=== PATIENT | female | born 1950 | race Hispanic/Latino ===

== ENCOUNTER → 2017-10-28 | Outpatient (CLI) | payer MEDICARE, OTHER ==
[~2017-10-28] MED LIST: GLIM4TAB3 PO; LISI-617 PO; OMEP20CA10 PO; SIMV5TAB6 PO
== END | disposition home or self-care (01) ==
LOC: RAH 07:53
PROVIDERS: ATTEND Surgery
DX: K80.10 Calculus of gallbladder with chronic cholecystitis without obstruction (principal)
CPT/HCPCS: 76705

== ENCOUNTER 2018-02-11 17:00 | Inpatient (IN) | payer OTHER ==
[~2018-02-11] VITALS: Ht 147.3 cm; Wt 67.1 kg
[~2018-02-11 17:00] MED LIST changes: -OMEP20CA10 PO
[2018-02-11] MEDS ORDERED: SODIUM CHLORIDE 0.9% 1000ML 1,000 ML IV ONE (17:19)
[2018-02-11 17:31] LABS: BASOPHILS % (AUTO) 0.3 % (0.0-5.0); EOSINOPHILS % (AUTO) 0.3 % (0.0-8.0); HEMATOCRIT 30.5 % (36-48); LYMPHOCYTES % (AUTO) 11.4 % (21.0-51.0); MEAN CORPUSCULAR HEMOGLOBIN 30.5 pg (27.0-33.0); MEAN CORPUSCULAR HGB CONC 35.2 g/dL (32.0-36.0); MEAN CORPUSCULAR VOLUME 86.6 fL (79-99); MONOCYTES % (AUTO) 3.3 % (3.0-13.0); NEUTROPHILS % (AUTO) 84.7 % (40.0-77.0); PLATELET COUNT (AUTO) 215 K/uL (130-400); RED BLOOD CELL COUNT(AUTO) 3.52 MIL/uL (4.00-5.50); RED CELL DISTRIBUTION WIDTH 14.8 % (11.0-15.5); WHITE BLOOD COUNT (AUTO) 14.2 K/uL (4.8-10.8)
[2018-02-11 17:32] LABS: APPEARANCE,URINE Turbid (CLEAR); BILIRUBIN,URINE Negative (NEGATIVE); COLOR,URINE Yellow (YELLOW); GLUCOSE, URINE (UA) 500 mg/dL (NEGATIVE); KETONES,URINE Negative (NEGATIVE); LEUKOCYTE ESTERASE ,URINE Large (NEGATIVE); NITRATE,URINE Positive (NEGATIVE); OCCULT BLOOD,URINE Small (NEGATIVE); PH,URINE 5.5 (5.0-8.0); PROTEIN,URINE POS 2+ (NEGATIVE); UROBILINOGEN,URINE 0.2 mg/dL (0.2-1.0)
[2018-02-11 17:39] LABS: BACTERIA,URINE Moderate /HPF (None Seen); WBC,URINE >100 /HPF (0-1)
[2018-02-11 17:40] LABS: RENAL EPITHELIAL CELLS,URINE Few /HPF (None Seen); TRANSITIONAL EPI CELLS,URINE Few /HPF (None Seen)
[2018-02-11 17:43] LABS: INR 1.01 (0.85-1.15); PARTIAL THROMBOPLASTIN TIME 27.8 SEC (26.3-35.5); PROTHROMBIN TIME 10.6 SEC (9.6-11.6)
[2018-02-11] MEDS ORDERED: ACETAMINOPHEN 325 MG TAB ONE (17:49)
[2018-02-11 17:51] LABS: CREATININE 1.5 mg/dL (0.5-1.5); POTASSIUM 3.5 mmol/L (3.5-5.1)
[2018-02-11] MEDS ORDERED: CEFTRIAXONE SODIUM 2 GM VIAL ONE (17:59)
[2018-02-11 18:05] LABS: ALBUMIN 3.6 g/dL (3.5-5.0); BILIRUBIN,TOTAL 0.6 mg/dL (0.2-1.0); CREATINE KINASE MB 1.1 ng/mL (0.5-3.6); TOTAL PROTEIN, SERUM 7.3 g/dL (6.0-8.3); TROPONIN I 0.22 ng/mL (0.00-0.06)
[2018-02-11 21:13] VITALS: BP 94/52
[2018-02-11] MEDS ORDERED: ONDANSETRON HCL MDV 20ML 2 MG/ML VIAL IVP PRN (23:30)
[2018-02-11] MEDS ORDERED: SODIUM CHLORIDE 0.9% 1000ML 1,000 ML IV SCH (23:30)
[2018-02-11 23:40] VITALS: BP 94/54
[2018-02-12] MEDS: ACETAMINOPHEN 325 MG TAB PO PRN ×4 (01:42→23:48)
[2018-02-12 03:00] VITALS: BP 100/46
[2018-02-12 07:54] VITALS: BP 98/46
[2018-02-12] MEDS: PANTOPRAZOLE SODIUM 40 MG TABLET.DR PO SCH (09:36)
[2018-02-12] MEDS: ENOXAPARIN SODIUM 30 MG/0.3 ML SQ SCH (09:39)
[2018-02-12] MEDS ORDERED: OMEP20CA10 PO (10:58)
[2018-02-12 11:50] VITALS: BP 122/63
[2018-02-12] MEDS ORDERED: COMPOUND PO MISCELLANEOUS 1 EACH MISC MISC PRN (14:15)
[2018-02-12] MEDS: ZOSYN 3.375GM+NS 50ML 50 ML IV SCH ×2 (14:27→21:05)
[2018-02-12 15:36] VITALS: BP 120/59
[2018-02-12] MEDS: OSELTAMIVIR SUSP 15 MG/ML (6 CAPS/29ML) PO SCH ×2 (15:47)
[2018-02-12] MEDS: SODIUM CHLORIDE 0.9% 1000ML 1,000 ML IV SCH (15:48)
[2018-02-12] MEDS ORDERED: CEFTRIAXONE SODIUM 1 GM IVP SCH ×2 (17:00)
[2018-02-12] MEDS ORDERED: GLUCAGON 1MG KIT 1 MG ML IM PRN (18:45)
[2018-02-12] MEDS ORDERED: DEXTROSE 50%-WATER 50 ML DISP.SYRIN IV PRN (18:45)
[2018-02-12 19:25] VITALS: BP 138/66
[2018-02-12] MEDS: INSULIN HUMULIN R 100 UNIT/ML 3ML SQ SCH (21:00)
[2018-02-12] MEDS ORDERED: OSELTAMIVIR PHOSPHATE 75 MG CAP PO SCH (21:00)
[2018-02-13] VITALS (7 sets, daily range): BP systolic 115–186; BP diastolic 57–97
[2018-02-13] MEDS: SODIUM CHLORIDE 0.9% 1000ML 1,000 ML IV SCH ×2 (03:54→15:33)
[2018-02-13] MEDS: ZOSYN 3.375GM+NS 50ML 50 ML IV SCH ×3 (04:37→23:41)
[2018-02-13] MEDS: INSULIN HUMULIN R 100 UNIT/ML 3ML SQ SCH ×4 (06:43→21:00)
[2018-02-13 06:51] LABS: BASOPHILS % (AUTO) 0.3 % (0.0-5.0); EOSINOPHILS % (AUTO) 0.2 % (0.0-8.0); HEMATOCRIT 28.8 % (36-48); LYMPHOCYTES % (AUTO) 9.3 % (21.0-51.0); MEAN CORPUSCULAR HEMOGLOBIN 31.1 pg (27.0-33.0); MEAN CORPUSCULAR HGB CONC 36.1 g/dL (32.0-36.0); MEAN CORPUSCULAR VOLUME 86.2 fL (79-99); MONOCYTES % (AUTO) 3.8 % (3.0-13.0); NEUTROPHILS % (AUTO) 86.4 % (40.0-77.0); PLATELET COUNT (AUTO) 168 K/uL (130-400); RED BLOOD CELL COUNT(AUTO) 3.34 MIL/uL (4.00-5.50); RED CELL DISTRIBUTION WIDTH 14.7 % (11.0-15.5); WHITE BLOOD COUNT (AUTO) 6.5 K/uL (4.8-10.8)
[2018-02-13 07:07] LABS: ALBUMIN 2.2 g/dL (3.5-5.0); BILIRUBIN,TOTAL 0.6 mg/dL (0.2-1.0); TOTAL PROTEIN, SERUM 5.7 g/dL (6.0-8.3)
[2018-02-13 07:21] LABS: POTASSIUM 2.7 mmol/L (3.5-5.1)
[2018-02-13] MEDS: OSELTAMIVIR SUSP 15 MG/ML (6 CAPS/29ML) PO SCH ×2 (09:00)
[2018-02-13] MEDS ORDERED: OSELTAMIVIR PHOSPHATE 75 MG CAP ONE (09:19)
[2018-02-13] MEDS: PANTOPRAZOLE SODIUM 40 MG TABLET.DR PO SCH (09:51)
[2018-02-13] MEDS: ENOXAPARIN SODIUM 30 MG/0.3 ML SQ SCH (09:53)
[2018-02-13] MEDS ORDERED: POTASSIUM CHLORIDE 20MEQ/100ML 100 ML IV PRN (12:30)
[2018-02-13] MEDS ORDERED: LIDOCAINE HCL-MPF 1% 2ML VIAL IVP PRN (12:30)
[2018-02-13] MEDS ORDERED: POTASSIUM CHLORIDE 10% ELIXIR 20 MEQ/15 ML UDCUP PO PRN (12:30)
[2018-02-13] MEDS: ACETAMINOPHEN 325 MG TAB PO PRN (17:02)
[2018-02-13] MEDS: POTASSIUM CHLORIDE 20 MEQ ERTAB PO PRN ×3 (17:11→23:48)
[2018-02-13] MEDS ORDERED: MAGNESIUM 2GM PREMIX 50ML 50 ML IV ONE (21:09)
[2018-02-13] MEDS ORDERED: MAGNESIUM 2GM PREMIX 50ML 50 ML IV SCH (21:15)
[2018-02-13] MEDS ORDERED: MAGNESIUM 2GM PREMIX 50ML 50 ML IV PRN (21:15)
[2018-02-14] VITALS: BP 118/60
[2018-02-14 04:00] VITALS: BP 142/72
[2018-02-14] MEDS: ACETAMINOPHEN 325 MG TAB PO PRN ×2 (04:05→18:33)
[2018-02-14 04:43] LABS: MAGNESIUM 2.3 mg/dL (1.80-2.40); POTASSIUM 3.4 mmol/L (3.5-5.1)
[2018-02-14] MEDS: ZOSYN 3.375GM+NS 50ML 50 ML IV SCH (06:00)
[2018-02-14] MEDS: INSULIN HUMULIN R 100 UNIT/ML 3ML SQ SCH ×4 (07:30→21:35)
[2018-02-14 08:44] VITALS: BP 128/66
[2018-02-14] MEDS ORDERED: MEROPENEM 1GM IVPB PREMIXED 1 GM IV SCH (10:00)
[2018-02-14] MEDS: DOXYCYCLINE HYCLATE 100 MG TABLET PO SCH ×2 (11:36→21:38)
[2018-02-14] MEDS: ENOXAPARIN SODIUM 30 MG/0.3 ML SQ SCH (11:36)
[2018-02-14] MEDS: MEROPENEM 1 GM VIAL IVP SCH ×2 (11:36→18:33)
[2018-02-14 12:38] VITALS: BP 132/61
[2018-02-14] MEDS: PANTOPRAZOLE SODIUM 40 MG TABLET.DR PO SCH (14:37)
[2018-02-14] MEDS: SODIUM CHLORIDE 0.9% 1000ML 1,000 ML IV SCH ×2 (14:37→21:46)
[2018-02-14 16:16] VITALS: BP 154/74
[2018-02-14] MEDS: POTASSIUM CHLORIDE 20 MEQ ERTAB PO PRN (18:46)
[2018-02-14 19:00] VITALS: BP 135/61
[2018-02-14] MEDS: SIMVASTATIN 5 MG PO SCH (21:00)
[2018-02-15] VITALS (7 sets, daily range): BP systolic 113–144; BP diastolic 59–72
[2018-02-15] MEDS: MEROPENEM 1 GM VIAL IVP SCH ×3 (02:29→18:23)
[2018-02-15] MEDS: INSULIN HUMULIN R 100 UNIT/ML 3ML SQ SCH ×4 (05:55→21:52)
[2018-02-15 06:20] LABS: HEMATOCRIT 30.2 % (36-48); MEAN CORPUSCULAR HEMOGLOBIN 29.1 pg (27.0-33.0); MEAN CORPUSCULAR HGB CONC 34.3 g/dL (32.0-36.0); MEAN CORPUSCULAR VOLUME 84.8 fL (79-99); PLATELET COUNT (AUTO) 177 K/uL (130-400); RED BLOOD CELL COUNT(AUTO) 3.56 MIL/uL (4.00-5.50); RED CELL DISTRIBUTION WIDTH 15.3 % (11.0-15.5); WHITE BLOOD COUNT (AUTO) 7.1 K/uL (4.8-10.8)
[2018-02-15 06:35] LABS: ALBUMIN 2.5 g/dL (3.5-5.0); BILIRUBIN,TOTAL 0.4 mg/dL (0.2-1.0); POTASSIUM 3.7 mmol/L (3.5-5.1); TOTAL PROTEIN, SERUM 6.5 g/dL (6.0-8.3)
[2018-02-15] MEDS: GLIMEPIRIDE 2 MG TABLET PO SCH (10:38)
[2018-02-15] MEDS: DOXYCYCLINE HYCLATE 100 MG TABLET PO SCH ×2 (10:38→22:00)
[2018-02-15] MEDS: PANTOPRAZOLE SODIUM 40 MG TABLET.DR PO SCH (10:38)
[2018-02-15] MEDS: ENOXAPARIN SODIUM 30 MG/0.3 ML SQ SCH (10:39)
[2018-02-15] MEDS: LISINOPRIL 5 MG TABLET PO SCH (10:39)
[2018-02-15] MEDS: SIMVASTATIN 5 MG PO SCH (21:00)
[2018-02-15] MEDS: SODIUM CHLORIDE 0.9% 1000ML 1,000 ML IV SCH ×2 (22:00→22:15)
[2018-02-16] MEDS: MEROPENEM 1 GM VIAL IVP SCH ×3 (03:52→17:46)
[2018-02-16 04:00] VITALS: BP 124/55
[2018-02-16 05:09] LABS: MEAN CORPUSCULAR HEMOGLOBIN 29.5 pg (27.0-33.0); MEAN CORPUSCULAR HGB CONC 34.6 g/dL (32.0-36.0); MEAN CORPUSCULAR VOLUME 85.3 fL (79-99); PLATELET COUNT (AUTO) 222 K/uL (130-400); RED BLOOD CELL COUNT(AUTO) 3.52 MIL/uL (4.00-5.50); WHITE BLOOD COUNT (AUTO) 6.2 K/uL (4.8-10.8)
[2018-02-16 05:25] LABS: CREATININE 1.1 mg/dL (0.5-1.5); POTASSIUM 3.9 mmol/L (3.5-5.1)
[2018-02-16] MEDS: INSULIN HUMULIN R 100 UNIT/ML 3ML SQ SCH ×4 (06:40→20:51)
[2018-02-16 07:40] VITALS: BP 124/61
[2018-02-16] MEDS: GLIMEPIRIDE 2 MG TABLET PO SCH (08:13)
[2018-02-16] MEDS: DOXYCYCLINE HYCLATE 100 MG TABLET PO SCH ×2 (08:13→20:51)
[2018-02-16] MEDS: LISINOPRIL 5 MG TABLET PO SCH (08:13)
[2018-02-16] MEDS: PANTOPRAZOLE SODIUM 40 MG TABLET.DR PO SCH (08:13)
[2018-02-16] MEDS: ENOXAPARIN SODIUM 30 MG/0.3 ML SQ SCH (08:14)
[2018-02-16 10:56] VITALS: BP 125/59
[2018-02-16] MEDS: SODIUM CHLORIDE 0.9% 1000ML 1,000 ML IV SCH ×2 (14:55→21:05)
[2018-02-16 16:29] VITALS: BP 123/67
[2018-02-16 19:38] VITALS: BP 137/66
[2018-02-16] MEDS: SIMVASTATIN 5 MG PO SCH (20:51)
[2018-02-16 23:52] VITALS: BP 121/56
[2018-02-17] MEDS: MEROPENEM 1 GM VIAL IVP SCH ×3 (03:02→18:20)
[2018-02-17 04:00] VITALS: BP 119/66
[2018-02-17 04:45] LABS: INR 0.92 (0.85-1.15); PARTIAL THROMBOPLASTIN TIME 25.6 SEC (26.3-35.5); PROTHROMBIN TIME 9.7 SEC (9.6-11.6)
[2018-02-17] MEDS: INSULIN HUMULIN R 100 UNIT/ML 3ML SQ SCH ×3 (06:31→16:22)
[2018-02-17 08:23] VITALS: BP 131/63
[2018-02-17] MEDS: ENOXAPARIN SODIUM 30 MG/0.3 ML SQ SCH (10:01)
[2018-02-17] MEDS: DOXYCYCLINE HYCLATE 100 MG TABLET PO SCH (10:01)
[2018-02-17] MEDS: GLIMEPIRIDE 2 MG TABLET PO SCH (10:02)
[2018-02-17] MEDS: LISINOPRIL 5 MG TABLET PO SCH (10:02)
[2018-02-17] MEDS: PANTOPRAZOLE SODIUM 40 MG TABLET.DR PO SCH (10:02)
[2018-02-17 12:21] VITALS: BP 130/66
[2018-02-17 16:25] VITALS: BP 120/56
== END 2018-02-17 19:00 | disposition home or self-care (01) | DRG 872 ==
LOC: EDH 17:00 → OBSVTOIN 18:37 → EDHIP 18:37 → 3CH 20:56
PROVIDERS: ADMIT Internal Medicine; ATTEND Internal Medicine
DX: A41.50 Gram-negative sepsis, unspecified (principal); N13.30 Unspecified hydronephrosis; E78.5 Hyperlipidemia, unspecified; D64.9 Anemia, unspecified; E11.9 Type 2 diabetes mellitus without complications; E87.6 Hypokalemia; N39.0 Urinary tract infection, site not specified; B96.89 Other specified bacterial agents as the cause of diseases classified elsewhere; Z16.24 Resistance to multiple antibiotics; Z60.2 Problems related to living alone; Z90.710 Acquired absence of both cervix and uterus; Z79.4 Long term (current) use of insulin; Z83.3 Family history of diabetes mellitus; I10 Essential (primary) hypertension
CPT/HCPCS: 36415; 71045; 74176; 80048; 80053; 81001; 82550; 82553; 82948; 83605; 83735; 83874; 84132; 84484; 85025; 85027; 85610; 85730; 86757; 87040; 87088; 87186; 93005; 99291; A4218; C1894; J0696; J1650; J1815; J2185; J2543; J3475; J3480; J3490; J7030

== ENCOUNTER → 2018-09-29 | Outpatient (CLI) | payer OTHER, MEDICARE ==
[~2018-09-29] MED LIST changes: +OMEP20CA10 PO
== END | disposition home or self-care (01) ==
LOC: RAH 09:16
PROVIDERS: ATTEND Family Medicine
DX: N13.30 Unspecified hydronephrosis (principal)
CPT/HCPCS: 74178

== ENCOUNTER 2019-04-23 19:33 | Observation (INO) | payer OTHER, MEDICARE ==
[~2019-04-23] VITALS: Ht 137.2 cm; Wt 74.4 kg
[~2019-04-23 19:33] MED LIST changes: +OMEP-50 PO; -OMEP20CA10 PO; +SIMV5TAB58 PO; -SIMV5TAB6 PO
[2019-04-23 21:07] LABS: BASOPHILS % (AUTO) 0.5 % (0.0-5.0); EOSINOPHILS % (AUTO) 2.1 % (0.0-8.0); HEMATOCRIT 32.3 % (36-48); MEAN CORPUSCULAR HGB CONC 32.3 g/dL (32.0-36.0); MEAN CORPUSCULAR VOLUME 86.4 fL (79-99); MONOCYTES % (AUTO) 5.8 % (3.0-13.0); NEUTROPHILS % (AUTO) 66.6 % (40.0-77.0); PLATELET COUNT (AUTO) 263 K/uL (130-400); RED BLOOD CELL COUNT(AUTO) 3.74 MIL/uL (4.00-5.50)
[2019-04-23 21:16] LABS: CREATININE 1.6 mg/dL (0.5-1.5)
[2019-04-23 21:19] LABS: INR 0.95 (0.85-1.15); PARTIAL THROMBOPLASTIN TIME 26.6 SEC (26.3-35.5)
[2019-04-23 21:27] LABS: ALBUMIN 3.6 g/dL (3.5-5.0); BILIRUBIN,TOTAL 0.2 mg/dL (0.2-1.0); TOTAL PROTEIN, SERUM 6.7 g/dL (6.0-8.3)
[2019-04-23] MEDS ORDERED: ASPIRIN 325 MG TABLET ONE (21:34)
[2019-04-23 22:35] LABS: APPEARANCE,URINE Clear (CLEAR); BILIRUBIN,URINE Negative (NEGATIVE); COLOR,URINE Yellow (YELLOW); GLUCOSE, URINE (UA) >=1000 mg/dL (NEGATIVE); KETONES,URINE Negative (NEGATIVE); LEUKOCYTE ESTERASE ,URINE Negative (NEGATIVE); NITRATE,URINE Positive (NEGATIVE); OCCULT BLOOD,URINE Negative (NEGATIVE); PROTEIN,URINE Negative (NEGATIVE); UROBILINOGEN,URINE 0.2 mg/dL (0.2-1.0)
[2019-04-23 22:46] LABS: AMPHET/METH SCREEN,URINE NEGATIVE (NEGATIVE); BARBITURATE SCREEN, URINE NEGATIVE (NEGATIVE); BENZODIAZEPINES SCREEN,URINE NEGATIVE (NEGATIVE); CANNABINOID SCREEN,URINE NEGATIVE (NEGATIVE); COCAINE SCREEN,URINE NEGATIVE (NEGATIVE); OPIATE SCREEN,URINE NEGATIVE (NEGATIVE); PHENCYCLIDINE SCREEN,URINE NEGATIVE (NEGATIVE)
[2019-04-23 23:02] LABS: BACTERIA,URINE Many /HPF (None Seen); RBC,URINE 0-1 /HPF (0-1); WBC,URINE 0-1 /HPF (0-1)
[2019-04-23 23:04] LABS: SQUAMOUS EPITHELIAL CELL,UR 0-2 /HPF (0-2)
[2019-04-24 01:50] VITALS: BP 142/74
[2019-04-24 03:20] VITALS: BP 121/56
[2019-04-24 07:58] VITALS: BP 102/65
[2019-04-24] MEDS ORDERED: ALEN70TA10 PO (10:33)
[2019-04-24] MEDS ORDERED: SIMV5TAB58 PO (10:35)
[2019-04-24] MEDS ORDERED: BACL10TA PO (10:35)
[2019-04-24] MEDS ORDERED: LOSA1TAB42 PO (10:35)
[2019-04-24] MEDS ORDERED: RANI150C4 PO (10:35)
[2019-04-24 10:45] LABS: POTASSIUM 4.6 mmol/L (3.5-5.1)
[2019-04-24] MEDS ORDERED: HUMALOG KWIK SQ SCH (10:45)
[2019-04-24 11:00] VITALS: BP 114/59
[2019-04-24] MEDS ORDERED: IOHEXOL-350 75 ML VIAL IV ONE (11:48)
[2019-04-24] MEDS ORDERED: CLOPIDOGREL BISULFATE 75 MG TAB PO SCH (15:15)
[2019-04-24 16:00] VITALS: BP 105/54
--- NOTE | 2019-04-24 16:18 | NUR ---
DARRYL AWARE OF CT'S ANGIO HEAD CT ORDERED US CAROTID AND KEEP SP <140 CHARGE NURSE AWARE
[2019-04-24] MEDS ORDERED: INSU200I SQ ×2 (16:31)
[2019-04-24] MEDS ORDERED: INSU3INS10 SQ (16:31)
--- NOTE | 2019-04-24 16:41 | NUR ---
FAMILY OF PATIENT ASKING IF PT CAN TAKE HOME INSULIN DEMOND FREIRE AWARE SINCE NO SLIDING SCALE ORDERED SHE STATED WILL PLACE PATIENT ON REGULAR SS#1 AC/HS NOT HER HOME INSULIN
[2019-04-24] MEDS ORDERED: HYDRALAZINE HCL 20 MG/ML VIAL IV PRN (16:45)
[2019-04-24] MEDS ORDERED: GLUCAGON 1MG KIT 1 MG ML IM PRN (16:45)
[2019-04-24] MEDS ORDERED: DEXTROSE 50%-WATER 50 ML DISP.SYRIN IV PRN (16:45)
[2019-04-24] MEDS: INSULIN HUMULIN R 100 UNIT/ML 3ML SQ SCH ×2 (17:11→22:57)
--- NOTE | 2019-04-24 17:18 | NUR ---
DCP CM met with pt discussed dc plans. Pt is independent prior to admission, lives at home alone, daughter and son lives close by. Denies any equipments/services. Pt feels safe to go back home, still drives, daughter and son able to assist with transportation and needs as necessary. DC plan to home once stable. CM to cont to follow up. Addendum: 04/24/19 at 1719 by JOHN MARKHAM LVN CM Amended: Links added.
[2019-04-24 20:00] VITALS: BP 110/54
[2019-04-24] MEDS: SIMVASTATIN 10 MG TABLET PO SCH (22:40)
[2019-04-24] MEDS: RANITIDINE HCL 15 MG/1 ML PO SCH (22:41)
[2019-04-25] VITALS: BP 118/56
[2019-04-25 04:00] VITALS: BP 109/61
[2019-04-25 06:03] LABS: HEMATOCRIT 34.1 % (36-48); MEAN CORPUSCULAR HEMOGLOBIN 28.5 pg (27.0-33.0); MEAN CORPUSCULAR HGB CONC 33.1 g/dL (32.0-36.0); MEAN CORPUSCULAR VOLUME 86.1 fL (79-99); PLATELET COUNT (AUTO) 270 K/uL (130-400); RED BLOOD CELL COUNT(AUTO) 3.97 MIL/uL (4.00-5.50); RED CELL DISTRIBUTION WIDTH 15.3 % (11.0-15.5); WHITE BLOOD COUNT (AUTO) 9.4 K/uL (4.8-10.8)
[2019-04-25 06:13] LABS: HEMOGLOBIN A1C 8.6 % (4.0-6.0)
[2019-04-25] MEDS: INSULIN HUMULIN R 100 UNIT/ML 3ML SQ SCH ×4 (07:04→21:24)
[2019-04-25 08:10] VITALS: BP 106/57
[2019-04-25] MEDS ORDERED: GADODIAMIDE 10 MMOL/20 ML VIAL IV ONE (10:33)
[2019-04-25] MEDS: LOSARTAN 100 MG TABLET PO SCH (10:46)
[2019-04-25] MEDS: CLOPIDOGREL BISULFATE 75 MG TAB PO SCH (10:46)
[2019-04-25] MEDS: LISINOPRIL 5 MG TABLET PO SCH (10:46)
[2019-04-25] MEDS: PANTOPRAZOLE SODIUM 40 MG TABLET.DR PO SCH (10:46)
[2019-04-25] MEDS: HYDROCHLOROTHIAZIDE 25 MG TABLET PO SCH (10:47)
[2019-04-25] MEDS: ASPIRIN 81MG TAB.CHEW PO SCH (10:47)
[2019-04-25 12:01] VITALS: BP 117/62
--- NOTE | 2019-04-25 12:30 | NUR ---
ROUNDS HERE TO SEE PT, SPOKE ABOUT RESULTS AND OPTIONS PRESENTED TO PT.
--- NOTE | 2019-04-25 16:30 | NUR ---
BLOOD SUGAR AT 244/ MISSED DOSAGE OF REGULAR SLIDING SCALE. DR. SIDHU NOTIFIED. NO FURTHER ORDERS. CONTINUE TO MONITOR BLOOD SUGAR.
[2019-04-25 16:45] VITALS: BP 109/62
[2019-04-25 20:00] VITALS: BP 106/58
[2019-04-25] MEDS: SIMVASTATIN 10 MG TABLET PO SCH (21:25)
[2019-04-25] MEDS: RANITIDINE HCL 15 MG/1 ML PO SCH (21:25)
[2019-04-26] VITALS: BP 95/50
[2019-04-26 04:00] VITALS: BP 97/50
[2019-04-26] MEDS: INSULIN HUMULIN R 100 UNIT/ML 3ML SQ SCH ×2 (06:20→11:12)
[2019-04-26 08:00] VITALS: BP 100/53
[2019-04-26] MEDS: CLOPIDOGREL BISULFATE 75 MG TAB PO SCH (09:06)
[2019-04-26] MEDS: ASPIRIN 81MG TAB.CHEW PO SCH (09:06)
[2019-04-26] MEDS: PANTOPRAZOLE SODIUM 40 MG TABLET.DR PO SCH (09:06)
[2019-04-26 11:47] VITALS: BP 144/65
[2019-04-26] MEDS: LOSARTAN 100 MG TABLET PO SCH (12:05)
[2019-04-26] MEDS: HYDROCHLOROTHIAZIDE 25 MG TABLET PO SCH (12:05)
[2019-04-26] MEDS: LISINOPRIL 5 MG TABLET PO SCH (12:05)
--- NOTE | 2019-04-26 16:53 | NUR ---
DISCHARGE INSTRUCTIONS GIVEN. INFORMED DAUGHTER "JEANNINE STEPHENS" TO MAKE SURE AND MAKE FOLLOW UP APPOINTMENTS WITH EVERY DOCTOR LISTED ON DISCHARGE INSTRUCTIONS TO BE MADE TOMORROW SINCE TODAY OFFICES ARE CLOSED FOR 04/26 . DAUGHTER TO MAKE APPOINTMENT DR. ELDRIDGE, DR. JOHNSON, DR FER LOUIS, DR. FER MCCAULEY . INSTRUCTED DAUGHTER AND PATIENT TO START ON ASPIRIN ORDERED. 325 MG DAILY FOR 30 DAYS. ALL QUESTIONS ANSWERED FOR JEANNINE DAUGHTER AND PATIENT. IV DISCONTINUED WITH INNER CANNULA INTACT.
== END 2019-04-26 16:50 | disposition home or self-care (01) ==
LOC: EDH 19:33 → INTOOBSV 04-24 00:25 → EDHIP 04-24 00:25 → OBSVTOIN 04-24 00:25 → 4CH 04-24 01:08
PROVIDERS: ADMIT Internal Medicine; ATTEND Internal Medicine
DX: I65.22 Occlusion and stenosis of left carotid artery (principal); E11.9 Type 2 diabetes mellitus without complications; I63.9 Cerebral infarction, unspecified; E78.5 Hyperlipidemia, unspecified; I10 Essential (primary) hypertension; K21.9 Gastro-esophageal reflux disease without esophagitis; M81.0 Age-related osteoporosis without current pathological fracture; Z79.899 Other long term (current) drug therapy
CPT/HCPCS: 36415 ×3; 70450; 70496; 70498; 70551; 71045; 80048 ×2; 80053; 80061; 80305; 81001; 82550; 82948 ×11; 83036; 83874; 84484; 85025; 85027; 85610; 85730; 93005; 93880; 96372 ×3; 99284; A9579; G0378 ×63; J1815 ×3; Q9967

== ENCOUNTER → 2019-05-21 | Outpatient (CLI) | payer OTHER, MEDICARE ==
[~2019-05-21] MED LIST changes: +ALEN70TA10 PO; +BACL10TA PO; +INSU200I SQ; +INSU3INS10 SQ; +LOSA1TAB42 PO; +RANI150C4 PO
== END | disposition home or self-care (01) ==
LOC: SHCH 08:57
PROVIDERS: ATTEND Internal Medicine Cardiovascular Disease
DX: I35.8 Other nonrheumatic aortic valve disorders (principal); I10 Essential (primary) hypertension
CPT/HCPCS: 93306

== ENCOUNTER 2019-06-07 06:00 | Day surgery (SDC) | payer OTHER, MEDICARE ==
[2019-06-04 13:45] LABS: BASOPHILS % (AUTO) 0.5 % (0.0-5.0); HEMATOCRIT 33.3 % (36-48); LYMPHOCYTES % (AUTO) 32.5 % (21.0-51.0); MEAN CORPUSCULAR HEMOGLOBIN 28.8 pg (27.0-33.0); MEAN CORPUSCULAR HGB CONC 33.3 g/dL (32.0-36.0); MEAN CORPUSCULAR VOLUME 86.5 fL (79-99); PLATELET COUNT (AUTO) 307 K/uL (130-400); RED BLOOD CELL COUNT(AUTO) 3.85 MIL/uL (4.00-5.50); RED CELL DISTRIBUTION WIDTH 14.8 % (11.0-15.5); WHITE BLOOD COUNT (AUTO) 9.8 K/uL (4.8-10.8)
[2019-06-04 13:48] LABS: APPEARANCE,URINE Clear (CLEAR); BILIRUBIN,URINE Negative (NEGATIVE); COLOR,URINE Yellow (YELLOW); GLUCOSE, URINE (UA) Negative (NEGATIVE); KETONES,URINE Negative (NEGATIVE); LEUKOCYTE ESTERASE ,URINE Negative (NEGATIVE); NITRATE,URINE Positive (NEGATIVE); OCCULT BLOOD,URINE Negative (NEGATIVE); PROTEIN,URINE Negative (NEGATIVE); UROBILINOGEN,URINE 0.2 mg/dL (0.2-1.0)
[2019-06-04 13:53] LABS: POTASSIUM 3.6 mmol/L (3.5-5.1)
[2019-06-04 13:56] LABS: INR 0.95 (0.85-1.15); PARTIAL THROMBOPLASTIN TIME 28.1 SEC (26.3-35.5)
[2019-06-04 14:00] LABS: BACTERIA,URINE Many /HPF (None Seen); RBC,URINE 0-1 /HPF (0-1); WBC,URINE 0-1 /HPF (0-1)
[2019-06-04 14:20] VITALS: BP 144/68
--- NOTE | 2019-06-06 16:25 | NUR ---
REPORTED ABNORMAL URINE LABS TO [place] RICKS FOR DR. LOUIS. ORDERS TO GIVE PT 1 GRAM ROCEPHIN IN AM PRIOR TO PROCEDURE.
[~2019-06-07] VITALS: Ht 149.9 cm; Wt 71.8 kg
[2019-06-07] VITALS (19 sets, daily range): BP systolic 108–130; BP diastolic 47–74
[~2019-06-07 06:00] MED LIST changes: +ASPI-1026 PO; +ATOR10 PO; -BACL10TA PO; +CHOL100040 PO; -GLIM4TAB3 PO; -LISI-617 PO; +MAGN250T10 PO; +METO-408 PO; -RANI150C4 PO; -SIMV5TAB58 PO; +SODIUM CHLORIDE 0.9% 500ML 500 ML IV SCH; +SUPPLEMENT PO
[2019-06-07] MEDS ORDERED: SODIUM CHLORIDE 0.9% 1000ML 1,000 ML IV ONE (06:40)
[2019-06-07] MEDS ORDERED: CEFTRIAXONE SODIUM 1 GM ONE (06:41)
[2019-06-07] MEDS ORDERED: LIDOCAINE HCL 2% 20ML ONE (07:11)
[2019-06-07] MEDS ORDERED: IODIXANOL 320 MG/ML 100 ML VIAL ONE (07:11)
[2019-06-07] MEDS ORDERED: NITROGLYCERIN 5 MG/ML 10 ML VIAL IV ONE (07:11)
[2019-06-07] MEDS ORDERED: HEPARIN SODIUM 1000UNIT/ML 10ML VIAL ONE (07:50)
[2019-06-07] MEDS ORDERED: CEFTRIAXONE SODIUM 1 GM IVP ONE (08:00)
[2019-06-07] MEDS ORDERED: SODIUM CHLORIDE 0.9% 1000ML 1,000 ML IV SCH (08:14)
[2019-06-07] MEDS ORDERED: DEXTROSE 50%-WATER 50 ML DISP.SYRIN IV PRN (08:15)
[2019-06-07] MEDS ORDERED: GLUCAGON 1MG KIT 1 MG ML IM PRN (08:15)
[2019-06-07] MEDS ORDERED: ATROPINE SULFATE 0.1 MG/ML 10 ML SYG IVP ONE (08:39)
[2019-06-07] MEDS ORDERED: INSULIN HUMULIN R 100 UNIT/ML 3ML SQ SCH (11:30)
== END 2019-06-07 13:41 | disposition home or self-care (01) ==
LOC: DAH 06:00
PROVIDERS: ATTEND Internal Medicine Cardiovascular Disease
DX: I65.22 Occlusion and stenosis of left carotid artery (principal); I10 Essential (primary) hypertension; K21.9 Gastro-esophageal reflux disease without esophagitis; M81.0 Age-related osteoporosis without current pathological fracture; E11.9 Type 2 diabetes mellitus without complications; E78.5 Hyperlipidemia, unspecified; Z88.8 Allergy status to other drugs, medicaments and biological substances; Z79.4 Long term (current) use of insulin; Z79.899 Other long term (current) drug therapy; Z79.82 Long term (current) use of aspirin; Z83.3 Family history of diabetes mellitus
CPT/HCPCS: 36223; 36225; 36415; 71045; 80048; 81001; 82948 ×2; 85025; 85610; 85730; 93005; A4606; C1769; C1894 ×2; J0696; J1644 ×2; J3490 ×2; J7030; Q9967; J0461

== ENCOUNTER → 2020-01-08 | Outpatient (CLI) | payer OTHER, MEDICARE ==
[~2020-01-08] MED LIST changes: +MONT10TA26 PO; -OMEP-50 PO; +OMEP20CA12 PO; +REGADENOSON 0.4 MG/5 ML PF SYG IVP SCH; -SODIUM CHLORIDE 0.9% 500ML 500 ML IV SCH
== END | disposition home or self-care (01) ==
LOC: SHCH 08:28
PROVIDERS: ATTEND Internal Medicine Cardiovascular Disease
DX: R06.09 Other forms of dyspnea (principal); I35.8 Other nonrheumatic aortic valve disorders
CPT/HCPCS: 78452; 93017; 96374; A9500 ×2; J2785

== ENCOUNTER → 2021-05-14 | Outpatient (CLI) | payer MEDICARE ==
[~2021-05-14] MED LIST changes: -ALEN70TA10 PO; +ALEN70TA80 PO; -MONT10TA26 PO; +MONT10TA32 PO; -REGADENOSON 0.4 MG/5 ML PF SYG IVP SCH
== END | disposition home or self-care (01) ==
LOC: SHCH 09:13
PROVIDERS: ATTEND Internal Medicine Cardiovascular Disease
DX: I87.2 Venous insufficiency (chronic) (peripheral) (principal)
CPT/HCPCS: 93970

== ENCOUNTER → 2022-02-24 | Outpatient (CLI) | payer OTHER, MEDICARE ==
[~2022-02-24] MED LIST changes: +MONT-39 PO; -MONT10TA32 PO
== END ==
LOC: SHCH 10:01
PROVIDERS: ATTEND Internal Medicine Cardiovascular Disease
DX: I20.9 Angina pectoris, unspecified (principal); R06.09 Other forms of dyspnea
CPT/HCPCS: 93306

== ENCOUNTER → 2022-02-26 | Outpatient (CLI) | payer OTHER, MEDICARE ==
[~2022-02-26] VITALS: Ht 147.3 cm; Wt 80.7 kg
[~2022-02-26] MED LIST changes: +REGADENOSON 0.4 MG/5 ML PF SYG IVP SCH
== END ==
LOC: SHCH 07:38
PROVIDERS: ATTEND Internal Medicine Cardiovascular Disease
DX: R06.09 Other forms of dyspnea (principal)
CPT/HCPCS: 78452; 93017; 96374; A9500 ×2; J2785

== ENCOUNTER 2022-06-16 06:30 | Day surgery (SDC) | payer OTHER, MEDICARE ==
[2022-06-10 10:49] LABS: BASOPHILS % (AUTO) 0.3 % (0.0-5.0); HEMATOCRIT 33.8 % (36-48); LYMPHOCYTES % (AUTO) 26.9 % (21.0-51.0); MEAN CORPUSCULAR HEMOGLOBIN 26.4 pg (27.0-33.0); MEAN CORPUSCULAR HGB CONC 31.1 g/dL (32.0-36.0); MEAN CORPUSCULAR VOLUME 84.9 fL (79-99); MONOCYTES % (AUTO) 5.1 % (3.0-13.0); NEUTROPHILS % (AUTO) 65.3 % (40.0-77.0); PLATELET COUNT (AUTO) 296 K/uL (130-400); RED BLOOD CELL COUNT(AUTO) 3.98 MIL/uL (4.00-5.50); RED CELL DISTRIBUTION WIDTH 20.3 % (11.0-15.5); WHITE BLOOD COUNT (AUTO) 10.2 K/uL (4.8-10.8)
[2022-06-10 10:52] LABS: APPEARANCE,URINE CLEAR (CLEAR); BILIRUBIN,URINE NEGATIVE (NEGATIVE); COLOR,URINE YELLOW (YELLOW); GLUCOSE, URINE (UA) NEGATIVE (NEGATIVE); KETONES,URINE NEGATIVE (NEGATIVE); LEUKOCYTE ESTERASE ,URINE NEGATIVE (NEGATIVE); NITRATE,URINE NEGATIVE (NEGATIVE); OCCULT BLOOD,URINE NEGATIVE (NEGATIVE); PH,URINE 5.5 (5.0-8.0); PROTEIN,URINE NEGATIVE (NEGATIVE); UROBILINOGEN,URINE 0.2 mg/dL (0.2-1.0)
[2022-06-10 10:56] LABS: CREATININE 1.2 mg/dL (0.5-1.5); POTASSIUM 4.2 mmol/L (3.5-5.1)
[2022-06-10 10:57] LABS: INR 0.94 (0.85-1.15); PROTHROMBIN TIME 10.3 SEC (9.6-11.6)
[2022-06-10 10:58] LABS: PARTIAL THROMBOPLASTIN TIME 26.8 SEC (26.3-35.5)
[2022-06-10 11:17] LABS: B-TYPE NATRIURETIC PEPTIDE 53 pg/mL (0-100)
[2022-06-15 10:05] VITALS: BP 142/69
[~2022-06-16] VITALS: Ht 142.2 cm; Wt 80.4 kg
[2022-06-16] VITALS (9 sets, daily range): BP systolic 128–149; BP diastolic 53–73
[~2022-06-16 06:30] MED LIST changes: +0.9% NACL 500ML IV.SOLN 500 ML IV SCH; +AEC81 PO; -ALEN70TA80 PO; -ASPI-1026 PO; -ATOR10 PO; +ATOR10TA69 PO; -CHOL100040 PO; +INSU100C6 SQ; -INSU200I SQ; -LOSA1TAB42 PO; -MAGN250T10 PO; -MONT-39 PO; -OMEP20CA12 PO; +OMEP40CA21 PO; -REGADENOSON 0.4 MG/5 ML PF SYG IVP SCH; -SUPPLEMENT PO; +TIZA2CAP9 PO
[2022-06-16] MEDS ORDERED: 0.9%NACL 1000ML 1,000 ML IV ONE (06:52)
[2022-06-16] MEDS ORDERED: NITROGLYCERIN 50MG VIAL ONE (07:19)
[2022-06-16] MEDS ORDERED: LIDOCAINE HCL 1% 20 ML VIAL ONE (07:19)
[2022-06-16] MEDS ORDERED: IOHEXOL 350 MG/ML 100ML INFUS..BTL IV ONE (07:20)
[2022-06-16] MEDS ORDERED: IOHEXOL-350 50ML VIAL IV ONE (07:20)
[2022-06-16] MEDS ORDERED: MIDAZOLAM HCL 1 MG/ML 2ML VIAL ONE (07:20)
[2022-06-16] MEDS ORDERED: FENTANYL CITRATE PF 50 MCG/1 ML 2ML VIAL ONE (07:20)
[2022-06-16] MEDS ORDERED: GLUCAGON 1MG KIT 1 MG ML IM PRN (08:30)
[2022-06-16] MEDS ORDERED: 0.9%NACL 1000ML 1,000 ML IV SCH (08:30)
[2022-06-16] MEDS ORDERED: DEXTROSE 50%-WATER 50 ML DISP.SYRIN IV PRN (08:30)
[2022-06-16] MEDS ORDERED: INSULIN HUMULIN R 100 UNIT/ML 3ML SQ SCH (11:30)
== END 2022-06-16 12:26 | disposition home or self-care (01) ==
LOC: DAH 06:30
PROVIDERS: ATTEND Internal Medicine Cardiovascular Disease
DX: I25.110 Atherosclerotic heart disease of native coronary artery with unstable angina pectoris (principal); I11.9 Hypertensive heart disease without heart failure; E78.5 Hyperlipidemia, unspecified; E11.9 Type 2 diabetes mellitus without complications; D64.9 Anemia, unspecified; M81.0 Age-related osteoporosis without current pathological fracture; E66.9 Obesity, unspecified; Z79.4 Long term (current) use of insulin; Z68.36 Body mass index [BMI] 36.0-36.9, adult; Z79.899 Other long term (current) drug therapy; Z79.01 Long term (current) use of anticoagulants
CPT/HCPCS: 80048; 83880; 85025; 85610; 85730; 81003; 36415; 93005; 93458; 82948 ×2; C1894 ×2; C1760; Q9965; J3010; J7030; J2250; J1644; J3490; Q9967; A4215; A4335; A4222; A4221; A4663; A4216; A4606; A4223 ×3; A4554; 99156

== ENCOUNTER → 2022-09-14 | Outpatient (CLI) | payer OTHER, MEDICARE ==
[~2022-09-14] MED LIST changes: -0.9% NACL 500ML IV.SOLN 500 ML IV SCH
== END | disposition home or self-care (01) ==
LOC: SHCH 12:51
PROVIDERS: ATTEND Internal Medicine Cardiovascular Disease
DX: I73.9 Peripheral vascular disease, unspecified (principal); I87.2 Venous insufficiency (chronic) (peripheral)
CPT/HCPCS: 93925; 93970

== ENCOUNTER → 2023-01-17 | Outpatient (CLI) | payer OTHER, MEDICARE ==
[2023-01-17 15:46] LABS: BASOPHILS % (AUTO) 0.4 % (0.0-5.0); EOSINOPHILS % (AUTO) 1.5 % (0.0-8.0); HEMATOCRIT 36.7 % (36-48); LYMPHOCYTES % (AUTO) 28.4 % (21.0-51.0); MEAN CORPUSCULAR HEMOGLOBIN 28.7 pg (27.0-33.0); MEAN CORPUSCULAR HGB CONC 31.3 g/dL (32.0-36.0); MEAN CORPUSCULAR VOLUME 91.5 fL (79-99); MONOCYTES % (AUTO) 5.9 % (3.0-13.0); NEUTROPHILS % (AUTO) 62.9 % (40.0-77.0); PLATELET COUNT (AUTO) 283 K/uL (130-400); RED BLOOD CELL COUNT(AUTO) 4.01 MIL/uL (4.00-5.50); RED CELL DISTRIBUTION WIDTH 14.7 % (11.0-15.5); WHITE BLOOD COUNT (AUTO) 13.8 K/uL (4.8-10.8)
[2023-01-17 15:58] LABS: CREATININE 1.2 mg/dL (0.5-1.5); POTASSIUM 4.2 mmol/L (3.5-5.1)
[2023-01-17 16:00] LABS: INR 0.93 (0.85-1.15); PROTHROMBIN TIME 9.7 SEC (9.6-11.6)
[2023-01-17 16:01] LABS: PARTIAL THROMBOPLASTIN TIME 24.8 SEC (26.3-35.5)
== END | disposition home or self-care (01) ==
LOC: LAB 14:41
PROVIDERS: ATTEND Internal Medicine Cardiovascular Disease
DX: I10 Essential (primary) hypertension (principal); E11.9 Type 2 diabetes mellitus without complications; I25.118 Atherosclerotic heart disease of native coronary artery with other forms of angina pectoris; Z79.01 Long term (current) use of anticoagulants
CPT/HCPCS: 36415; 80048; 85025; 85610; 85730

== ENCOUNTER → 2023-01-25 | Outpatient (CLI) | payer OTHER, MEDICARE ==
[2023-01-25 12:20] LABS: BASOPHILS % (AUTO) 0.4 % (0.0-5.0); EOSINOPHILS % (AUTO) 2.7 % (0.0-8.0); HEMATOCRIT 35.7 % (36-48); LYMPHOCYTES % (AUTO) 26.9 % (21.0-51.0); MEAN CORPUSCULAR HEMOGLOBIN 28.6 pg (27.0-33.0); MEAN CORPUSCULAR HGB CONC 30.8 g/dL (32.0-36.0); MEAN CORPUSCULAR VOLUME 92.7 fL (79-99); MONOCYTES % (AUTO) 5.5 % (3.0-13.0); NEUTROPHILS % (AUTO) 63.4 % (40.0-77.0); PLATELET COUNT (AUTO) 282 K/uL (130-400); RED BLOOD CELL COUNT(AUTO) 3.85 MIL/uL (4.00-5.50); RED CELL DISTRIBUTION WIDTH 15.2 % (11.0-15.5); WHITE BLOOD COUNT (AUTO) 9.8 K/uL (4.8-10.8)
[2023-01-25 12:35] LABS: INR 0.93 (0.85-1.15); PROTHROMBIN TIME 9.8 SEC (9.6-11.6)
[2023-01-25 12:36] LABS: PARTIAL THROMBOPLASTIN TIME 24.5 SEC (26.3-35.5)
[2023-01-25 12:43] LABS: CREATININE 1.2 mg/dL (0.5-1.5); POTASSIUM 5.7 mmol/L (3.5-5.1)
== END | disposition home or self-care (01) ==
LOC: LAB 08:40
PROVIDERS: ATTEND Internal Medicine Cardiovascular Disease
DX: I25.118 Atherosclerotic heart disease of native coronary artery with other forms of angina pectoris (principal); E11.9 Type 2 diabetes mellitus without complications; I10 Essential (primary) hypertension; Z79.01 Long term (current) use of anticoagulants
CPT/HCPCS: 36415; 80048; 85025; 85610; 85730

== ENCOUNTER → 2024-07-14 | Outpatient (CLI) | payer OTHER, MEDICARE | END | disposition home or self-care (01) | LOC: SHCH 08:20 | PROVIDERS: ATTEND Internal Medicine Cardiovascular Disease | DX: R01.1 Cardiac murmur, unspecified (principal) | CPT/HCPCS: 93306 ==

== ENCOUNTER → 2024-08-30 | Outpatient (CLI) | payer OTHER, MEDICARE ==
--- NOTE | 2024-08-30 18:26 | HMCSR ---
APPROVED REPORT Laterality: Bilateral Doppler Spectral Velocity Analysis PSV / EDVPSV / EDV ECA (R) 78 / cm/sECA (L) 61 / cm/s dICA (R) 38 / 16 cm/sdICA (L) 80 / 25 cm/s Estefany (R) 61 / 19 cm/smICA (L) 93 / 28 cm/s pICA (R) 40 / 12 cm/spICA (L) 72 / 20 cm/s dCCA (R) 64 / 16 cm/sdCCA (L) 51 / 13 cm/s mCCA (R) 57 / 15 cm/smCCA (L) 47 / 11 cm/s pCCA (R) 81 / 12 cm/spCCA (L) 81 / 7 cm/s Vert (R) 50 / cm/sVert (L) 36 / cm/s Subl. (R) 150 / cm/sSubl. (L) 284 / cm/s ICA/CCA 0.75ICA/CCA 1.15 Technologist Impression Mild heterogenous plaque noted in the bilateral carotid arteries without hemodynamic significance. The bilateral vertebral arteries reflect antegrade flow. Elevated velocities noted in the left subclavian artery. Conclusion Minimal plaque noted in the bilateral carotids, without hemodynamic significance. Bilateral vertebral arteries appear antegrade. Conclusion Minimal plaque noted in the bilateral carotids, without hemodynamic significance. Bilateral vertebral arteries appear antegrade.
--- NOTE | 2024-08-30 18:27 | HMCSR ---
APPROVED REPORT Laterality: Bilateral VELOCITY AND DOPPLER WAVEFORM ANALYSIS ELECTRICIAN ELEVATOR MAINTENANCE (R) 127.2cm/sec, Biphasic, ELECTRICIAN ELEVATOR MAINTENANCE (L) 115.8cm/sec, Biphasic, Prof Fem Art. (R) 58.7cm/sec, Biphasic, Prof Fem Art. (L) 48.9cm/sec, Biphasic, Fem Art Prox. (R) 79.9cm/sec, Biphasic, Fem Art Prox. (L) 91.4cm/sec, Biphasic, Fem Art Mid. (R) 128.9cm/sec, Biphasic, Fem Art Mid. (L) 93.0cm/sec, Biphasic, Fem Art Dist (R) 109.3cm/sec, Biphasic, Fem Art Dist. (L) 86.5cm/sec, Biphasic, Pop Art(AK) (R) 81.6cm/sec, Biphasic, Pop Art (AK) (L) 63.6cm/sec, Biphasic, Pop Art (Fossa)(R) 70.1cm/sec, Biphasic, Pop Art (Fossa) (L) 60.0cm/sec, Biphasic, Pop Art(BK) (R) 78.3cm/sec, Biphasic, Pop Art (BK) (L) 76.7cm/sec, Biphasic, PLASTER MACHINE OPERATOR Prox. (R) 75.0cm/sec, Biphasic, PLASTER MACHINE OPERATOR Prox. (L) 60.4cm/sec, Biphasic, PLASTER MACHINE OPERATOR Mid. (R) 79.9cm/sec, Biphasic, PLASTER MACHINE OPERATOR Mid. (L) 75.0cm/sec, Biphasic, PLASTER MACHINE OPERATOR Dist. (R) 81.6cm/sec, Biphasic, PLASTER MACHINE OPERATOR Dist. (L) 31.0cm/sec, Biphasic, Per Art Dist. (R) 68.5cm/sec, Biphasic, Per Art Dist. (L) cm/sec, Not visualized SUNG Prox. (R) 64.8cm/sec, Biphasic, SUNG Prox. (L) 50.9cm/sec, Biphasic, SUNG Mid. (R) 68.3cm/sec, Biphasic SUNG Mid. (L) 57.9cm/sec, Biphasic, SUNG Dist. (R) 110.9cm/sec, Biphasic, SUNG Dist. (L) 66.0cm/sec, Biphasic, Technologist Impression Diffuse atherosclerosis throughout the bilateral lower extremities with no evidence of significant ar terial insufficiency. Conclusion No evidence of significant arterial insufficiency of bilateral lower extremities. Conclusion No evidence of significant arterial insufficiency of bilateral lower extremities.
--- NOTE | 2024-08-30 18:27 | HMCSR ---
APPROVED REPORT Bilateral Lower Extremity Venous Study for DVT., Venous Competence.Study performed with patient in up right position or in reverse Trendelenburg. Past History 11/15 LCIV stent, 03/15 RCIV stent Vein Imaging CFV (R): Normal flow, augmentation and compression. No evidence of DVT, Diamter 11.8 mm SFJ (R): Normal flow, augmentation and compression. No evidence of DVT. FEM (R): Normal flow, augmentation and compression. No evidence of DVT. POP (R): Normal flow, augmentation and compression. No evidence of DV, 744 ms of DVR. DFV (R): Normal flow, augmentation and compression. No evidence of DVT. PTV (R): Normal flow, augmentation and compression. No evidence of DVT. Peroneals (R): Normal flow, augmentation and compression. No evidence of DVT. GAS (R): Normal flow, augmentation and compression. No evidence of DVT. CFV (L): Normal flow, augmen tation and compression. No evidence of DVT, Diamter 14.2 mm SFJ (L): Normal flow, augmentation and compression. No evidence of DVT. FEM (L): Normal flow, augmentation and compression. No evidence of DVT. POP (L): Normal flow, augmentation and compression. No evidence of DVT. DFV (L): Normal flow, augmentation and compression. No evidence of DVT. PTV (L): Normal flow, augmentation and compression. No evidence of DVT. Peroneals (L): Normal flow, augmentation and compression. No evidence of DVT. GAS (L): Normal flow, augmentation and compression. No evidence of DVT. Technologist Impression The deep veins of the bilateral lower extremities appear patent and compressible without evidence of thrombus. Deep venous reflux demonstrated in the right popliteal vein. RGSV Junction 5.4 mm 0 ms Mid thigh 3.0 mm 256 ms Knee 3.2 mm 461 ms Mid- calf 2.4 mm 289 ms RSSV Prox 1.7 mm 0 ms Mid 2.2 mm 0 ms LGSV Junction 4.1 mm 233 ms Mid thigh 3.0 mm 0 ms Knee 3.1 mm 0 ms Mid-calf 2.5 mm 622 ms LSSV Prox 1.5 mm 0 ms Mid 1.5 mm 0 ms Conclusion Deep venous reflux noted Superficial venous reflux noted of left greater saphenous vein Clinical correlation recommended Conclusion Deep venous reflux noted Superficial venous reflux noted of left greater saphenous vein Clinical correlation recommended
== END | disposition home or self-care (01) ==
LOC: SHCH 08:51
PROVIDERS: ATTEND Internal Medicine Cardiovascular Disease
DX: I65.23 Occlusion and stenosis of bilateral carotid arteries (principal); I87.2 Venous insufficiency (chronic) (peripheral); I73.9 Peripheral vascular disease, unspecified
CPT/HCPCS: 93880; 93925; 93970

== ENCOUNTER → 2025-01-22 | Outpatient (CLI) | payer OTHER, MEDICARE ==
[~2025-01-22] MED LIST changes: +GADOTERATE MEGLUMINE 10 MMOL/20 ML VIAL IV ONE
--- NOTE | 2025-01-22 12:39 | HMCIMG ---
MR SPINAL CANAL, LUMB W/WO CON HISTORY: Radiculopathy COMPARISON: None TECHNIQUE: MRI of the lumbar spine was performed utilizing multiple pulse sequences in axial , coronal and sagittal plane. Patient was given 17 cc of Clariscan through intravenous route. FINDINGS: There is levoscoliosis of lumbar spine. No abnormal signal intensity is seen of the visualized bony structure. No loss of vertebral height is seen. There is straightening of normal lumbar curvature which may be related to muscle spasm or positioning. Degenerative disc signals are present at all lumbar spine levels. Visualized distal conus is unremarkable. At the T12-L1 level, there is spondylotic disc with bilateral ligamentum flavum hypertrophy causing anterior thecal sac compression with bilateral lateral recess stenosis and bilateral neural foraminal stenosis. The thecal sac measures approximately 5.5 mm in its anterior posterior dimension. At the L1-L2 level, there is spondylotic disc with bilateral ligamentum flavum hypertrophy causing anterior thecal sac compression with bilateral lateral recess stenosis and bilateral neural foraminal stenosis. The thecal sac measures approximately 4.7 mm in its anterior posterior dimension. At the L2-L3 level, there is spondylotic disc with bilateral ligamentum flavum hypertrophy causing anterior thecal sac compression with bilateral lateral recess stenosis and bilateral neural foraminal stenosis. The thecal sac measures approximately 5.1 mm in its anterior posterior dimension. At the L3-L4 level, there is spondylotic disc with annular disc bulge and bilateral ligamentum flavum hypertrophy causing anterior thecal sac compression with bilateral lateral recess stenosis and bilateral neural foraminal stenosis. The thecal sac measures approximately 2.8 mm in its anterior posterior dimension. At the L4-5 level, there is spondylotic disc with annular disc bulge and bilateral ligamentum flavum hypertrophy causing anterior thecal sac compression with bilateral lateral recess stenosis and bilateral neural foraminal stenosis. The thecal sac measures approximately 3.3 mm in its anterior posterior dimension. At the L5-S1 level, there is spondylotic disc with annular disc bulge and bilateral ligamentum flavum hypertrophy causing anterior thecal sac compression with bilateral lateral recess stenosis and bilateral neural foraminal stenosis. The thecal sac measures approximately 4.9 mm in its anterior posterior dimension. IMPRESSION: 1. 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 There is scoliosis.
== END | disposition home or self-care (01) ==
LOC: RAH 10:30
PROVIDERS: ATTEND Internal Medicine
DX: M47.26 Other spondylosis with radiculopathy, lumbar region (principal); M41.86 Other forms of scoliosis, lumbar region; M51.17 Intervertebral disc disorders with radiculopathy, lumbosacral region; R32 Unspecified urinary incontinence; M48.061 Spinal stenosis, lumbar region without neurogenic claudication
CPT/HCPCS: 72158; A9575